=== PATIENT | male | born 1945 | race Hispanic/Latino ===

== ENCOUNTER 2022-03-19 00:09 | Emergency (ER) | payer OTHER ==
[2022-03-19 01:24] VITALS: BP 100/72
--- NOTE | 2022-03-19 02:09 | Emergency Department Report ---
HPI - General Chief Complaint: Dyspnea/Respdistress PUI?: No Time Seen by Provider: 03/19/22 01:18 - HPI HPI: 76-year-old male with active chronic tobacco abuse, atrial fibrillation, COPD (not on home oxygen), congestive heart failure, coronary artery disease with 4 stents, defibrillator and pacemaker, brought in by EMS for shortness of breath. Patient asked to provide list of medications he takes but he states he does not know. Patient reports he felt shortness of breath starting today and felt dizzy. He denies any falls or head trauma. He states his defibrillator did not go off. He denies any chest pain or loss of consciousness. No pain or swelling in his legs. No recent prolonged travel history immobilization. Pain currently 0 out of 10. Patient states he feels "much better" since have been brought brought to the ER. Per EMSs report, the patient was given one 7.5 mg treatment of albuterol inhaler prior to arrival. ED Past Medical Hx - Past Medical History Previous Medical History?: Yes Hx Congestive Heart Failure: Yes Hx Diabetes: Yes Hx Seizures: Yes Hx COPD: Yes Additional medical history: A-fib - Surgical History Past Surgical History?: No - Social History Smoking Status: Current Every Day Smoker Substance Use Type: None - Medications Home Medications: Home Medications Medication Instructions Recorded Confirmed Last Taken Type Albuterol Mdi (or & Nicu Only) 2 puff IH QID PRN #8.5 gram 03/19/22 Unknown Rx [ProAir HFA Inhaler] predniSONE [Deltasone] 60 mg PO DAILY 5 Days #15 03/19/22 Unknown Rx ED Review of Systems ROS: Stated complaint: RESPIRATORY DISTRESS Other details as noted in HPI Comment: All other systems reviewed and negative Constitutional: no symptoms reported Respiratory: see HPI, shortness of breath, SOB at rest. denies: cough, orthopnea, SOB with exertion, stridor, wheezing, other Cardiovascular: as per HPI. denies: chest pain, palpitations, dyspnea on exertion, orthopnea, edema, syncope, paroxysmal nocturnal dyspnea, other Endocrine: no symptoms reported Physical Exam - Physical Exam Vital Signs: Vital Signs 03/19/22 00:09 Temperature 98.5 F Pulse Rate 62 Respiratory 20 Rate Blood Pressure 100/72 O2 Sat by Pulse 99 Oximetry General: Gen: Chronically ill-appearing elderly male, sitting up in stretcher,'s being administered supplemental oxygen via nasal cannula, comfortable appearing, disheveled, no acute distress HEENT: Normocephalic atraumatic pupils equally round and reactive to light extraocular muscles intact sclera anicteric Neck: Full range of motion, no midline spinal tenderness palpation, no JVD, no carotid bruits, no nuchal rigidity CVS: S1-S2 regular rate and rhythm with no gallops rubs or murmurs, chest wall nontender Pulmonary: Clear to auscultation bilaterally, no wheezes rales or rhonchi Abdomen: Soft nondistended nontender no guarding or rebound tenderness, no palpable deformities or step-offs, normal active bowel sounds, no hepatosplenomegaly, no pulsatile masses : Deferred Extremities: No cyanosis no clubbing no edema, intact distal peripheral pulses, Integumentary: Skin normal, no petechia no purpura no abscess no lacerations no evidence of trauma no evidence of infection Neuro: Patient is awake alert and oriented to person place time situation, mentating well, cranial nerves II through XII intact, no focal neurodeficits, sensation grossly tact Psych: Calm cooperative, mood affect normal ED Course Vital Signs 03/19/22 00:09 Temperature 98.5 F Pulse Rate 62 Respiratory 20 Rate Blood Pressure 100/72 O2 Sat by Pulse 99 Oximetry - Reevaluation(s) Reevaluation #1: 03/19/22 03:21 pt reassesed; he is asleep, comfortable,and well appearing; denies any active sob, difficulty breathing, chest pain, dizziness, palpitations, weakness, or any other symptoms at this time Reevaluation #2: 03/19/22 03:28 Patient reassessed. He is asleep but easily arousable. Denies any symptoms at this time. Plan will be for discharge to home. - Consultations Consultation #1: 03/19/22 03:22 Case reviewed with jimmy Jaramillo. Per his verbal report he independently reviewed the patient's serum labs as well as diagnostic imaging. Per his report, patient does not meet criteria for inpatient admission at this time. ED Medical Decision Making - Lab Data Result diagrams: 03/19/22 01:59 03/19/22 01:59 - EKG Data -: EKG Interpreted by Me Rate: tachycardia - EKG Data When compared to previous EKG there are: previous EKG unavailable Interpretation: other 03/19/22 02:22 Pt has no prior ekg available for comparison. Pt has ventricular paced rhythm. Ventricular rate is 131bpm. - Radiology Data Radiology results: report reviewed - Medical Decision Making 76-year-old male presents for evaluation of transient shortness of breath and difficulty breathing which resolved after having been given albuterol treatment by EMS prior to arrival. Vital signs stable. Diagnostic imaging and lab results reviewed. Patient given Solu-Medrol here. He was reassessed multiple times and he remained very comfortable and well-appearing and asymptomatic. He ambulated here with normal steady gait and had no dyspnea hypoxia or any evidence of cardiopulmonary or neurovascular decompensation. Case was reviewed at length with admitting hospitalist, . He reviewed the patient's labs and diagnostic imaging independently per his report. Per his verbal report patient does not meet criteria for inpatient admission at this time. This was discussed with the patient. Patient verbalized understanding. He was discharged to home in stable and asymptomatic condition. Critical Care Time: No Critical care attestation.: If time is entered above; I have spent that time in minutes in the direct care of this critically ill patient, excluding procedure time. ED Disposition Clinical Impression: COPD exacerbation Disposition: 01 HOME / SELF CARE / HOMELESS Is pt being admited?: No Does the pt Need Aspirin: No Condition: Stable Instructions: Chronic Obstructive Pulmonary Disease Exacerbation, [id number], Chronic Obstructive Pulmonary Disease (ED) Additional Instructions: Follow-up with your primary care doctor at the [facility] for reassessment within 1-2 business days. This is very important. Take prednisone 60 mg by mouth daily for the next 5 days. Use your albuterol inhaler to help with any cough or shortness of breath you may experience. Please observe your symptoms very carefully. Return to the nearest emergency department soon as possible if you develop worsening shortness of breath, di fficulty breathing, chest pain, dizziness, lightheadedness, loss of consciousness, inability tolerate liquids or solids, or if any other new worrisome symptoms develop Prescriptions: predniSONE [Deltasone] 60 mg PO DAILY 5 Days #15 Albuterol Mdi (or & Nicu Only) [ProAir HFA Inhaler] 2 puff IH QID PRN #8.5 gram PRN Reason: Shortness Of Breath
[2022-03-19 02:18] LABS: Basophils % (Auto) 0.2 % (0.0-1.8); Eosinophils % (Auto) 0.4 % (0.0-4.3); Hematocrit 45.4 % (35.5-45.6); Hemoglobin 14.9 gm/dl (11.8-15.2); Lymphocytes # (Auto) 1.1 K/mm3 (1.2-5.4); Lymphocytes % (Auto) 13.2 % (13.4-35.0); Mean Corpuscular HGB Conc 33 % (32-34); Mean Corpuscular Volume 98 fl (84-94); Monocytes # (Auto) 0.6 K/mm3 (0.0-0.8); Monocytes % (Auto) 7.2 % (0.0-7.3); Platelet Count 216 K/mm3 (140-440); Red Blood Count 4.64 M/mm3 (3.65-5.03); Red Cell Distribution Width 14.4 % (13.2-15.2)
[2022-03-19] MEDS ORDERED: dilTIAZem 25 MG/5 ML INJ IV ONE ×2 (02:20)
[2022-03-19] MEDS ORDERED: SODIUM CHLORIDE 0.9% 1000 ML 1,000 ML IV ONE (02:20)
[2022-03-19 02:36] LABS: Alanine Aminotransferase 15 units/L (7-56); Albumin 3.8 g/dL (3.9-5); BUN/Creatinine Ratio 24; Blood Urea Nitrogen 26 mg/dL (9-20); Calcium 10.8 mg/dL (8.4-10.2); Hemolysis Index 20
--- NOTE | 2022-03-19 02:39 | XRay Report ---
CHEST 1 VIEW INDICATION / CLINICAL INFORMATION: sob, hx of chf, copd, pacemaker/defibrillator. COMPARISON: None available. FINDINGS: SUPPORT DEVICES: Cardiac pacemaker with leads in appropriate position. HEART / MEDIASTINUM: Heart size within normal limits. Mediastinal contour demonstrates no significant abnormality. LUNGS / PLEURA: Coarsened interstitial markings and emphysematous changes are suggested. No focal air space consolidation. Hilar structures appear within normal limits. BONES: Remote posterior lateral right rib deformity. ADDITIONAL FINDINGS: No significant additional findings. IMPRESSION: 1. Emphysematous changes are suggested without evidence of superimposed acute pathology. Signer Name: Gary Lee II, MD Signed: 03/19/2022 2:36 AM Workstation Name: [id number]
[2022-03-19] MEDS ORDERED: methylPREDNISolone Sod Succinate 125 MG/2 ML INJ IV ONE (02:45)
--- NOTE | 2022-03-20 08:23 | Electrocardiograph Report ---
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
--- NOTE | 2022-03-20 08:23 | Electrocardiograph Report ---
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
== END 2022-03-19 04:38 | disposition home or self-care (01) ==
LOC: ED 00:09
DX: J44.1 Chronic obstructive pulmonary disease with (acute) exacerbation (principal); I50.9 Heart failure, unspecified; E11.9 Type 2 diabetes mellitus without complications; F17.200 Nicotine dependence, unspecified, uncomplicated; Z98.890 Other specified postprocedural states; Z79.899 Other long term (current) drug therapy
CPT/HCPCS: 36415; 71045; 80053; 83735; 83880; 84443; 85025; 93005; 96374; 99284; J2930; J3490; J7030